=== PATIENT | female | born 1995 | race Two or more races ===

== ENCOUNTER 2017-11-05 18:33 | Emergency (ER) | payer MEDICAID ==
[~2017-11-05] VITALS: Ht 160 cm; Wt 49.0 kg
--- NOTE | 2017-11-05 18:40 | Emergency Room Report ---
History of Present Illness General Chief Complaint: Complications Source: Patient Present Illness HPI 22 yo female patient presents to ER complaining of vaginal bleed since today. Patient reports she is 4.5 weeks . Reports first . Reports at OBGYN for first appointment this morning, confirmed with blood test, PAP performed at that time, reports no abnormal results. Reports seen at [facility]. in [place]. Presents with paperwork stating she is , paperwork does show lab results. Reports at home test negative yesterday. Reports went to bathroom and wiped and saw blood on toilet paper. Denies pain with urination, denies vaginal discharge. Denies use of pads. Denies passage of products of conception or clots. Denies nausea, vomiting. Reports abdominal discomfort earlier; denies abdominal pain at this time. Denies syncope. Reports does not know Rh status. Denies fever, chest pain, SOB, calf pain. Allergies: Coded Allergies: No Known Allergies (Unverified , 11/05/17) Patient History Past Medical History: see triage record Now: Yes - 4 1/2 weeks Reviewed Nursing Documentation: PMH: Agreed; PSxH: Agreed Nursing Documentation-PMH Past Medical History: No Stated History Review of Systems All Other Systems: negative except mentioned in HPI Physical Exam Vital Signs Date Time Temp Pulse Resp B/P (MAP) Pulse Ox O2 Delivery O2 Flow Rate FiO2 11/05/17 18:27 97.7 81 16 101/68 97 Room Air 97.7 Sp02 EP Interpretation: reviewed, normal General Appearance: well appearing, no apparent distress, alert, GCS 15, non- toxic Head: normocephalic, atraumatic Eyes: bilateral eye normal inspection, bilateral eye PERRL ENT: hearing grossly normal, normal pharynx, no angioedema, normal voice, uvula midline, moist mucus membranes Neck: full range of motion Respiratory: lungs clear, normal breath sounds, no rhonchi, no respiratory distress, no accessory muscle use, no wheezing, speaking full sentences Cardiovascular #1: regular rate, rhythm, no edema Gastrointestinal: non tender, soft, no mass, non-distended, no guarding, no rebound Genitourinary: no CVA tenderness, deferred Musculoskeletal: back normal, digits/nails normal, gait/station normal, normal range of motion, non-tender, no calf tenderness, Kristopher's Sign negative Neurologic: alert, oriented x3, responsive, motor strength/tone normal, sensory intact Skin: no rash Lymphatic: no adenopathy Medical Decision Making PA Attestation Dr. Delaney is my supervising Physician whom patient management has been discussed with. Diagnostic Impression: Primary Impression: Follicular cyst of ovary Additional Impression: Negative test ER Course Pt presents to ED c/o vaginal spotting. Reports 4.5 weeks . DDX considered but are not limited to threatened , incomplete , complete , ectopic, UTI, septic . VITAL SIGNS are WNL, patient is afebrile. Pelvic exam deferred. Ordered CBC, CMP, Type and Screen, UA, UCG, bHCG, IV NS and pelvic US. Pain control. ER COURSE: Patient resting comfortably, in no acute distress, nontoxic appearing, afebrile. Low suspicion for septic . PE benign, no abdominal pain, no CVA tenderness. Patient reports pain symptoms resolved since onset. CBC and CMP unremarkable, no elevation in WBC or LFTs UA results negative nitrites, negative leukocyte esterase, will not treat for UTI. Urine negative BetaHCG <1. Low suspicion for ectopic . Rh antibody negative Blood type: O positive Informed patient of blood type and Rh status. Discuss results with patient. Informed patient may have lost or are beginning to lose . Need to followup with clinic to confirm initial lab results of . Prior test may have been a false positive. Need repeat testing. US results shows no IUP. Early in , may not be visible at this time. Follicular cysts and free fluid per US generation technician, followup with OBGYN to monitor. Take Tylenol for pain. STATRAD negative ovarian torsion, negative IUP. Patient provided with copy of STATRAD report. Instructed patient to followup with OBGYN for further testing and repeat imaging at that time. Patient reports clinic where diagnosed is open tomorrow and she will report there to discuss results and further followup treatment at that time. Informed patient to take Tylenol only for pain symptoms, do not take Motrin/ Ibuprofen. ER precautions provided to patient. Patient OK for discharge to home. Consult with Dr. Delaney regarding results. Agrees with above treatment and plan. DISCHARGE: -Rx provided for Tylenol for pain At this time pt. is stable for d/c to home. At this time patient is resting comfortably, in no acute distress, nontoxic appearing, talking without difficulty. Will provide printed patient care instructions, and any necessary prescriptions. Patient instructed to follow with OBGYN for further treatment and referral as needed. Care plan and follow up instructions have been discussed with the patient prior to discharge. Patient reports understanding and agreement to treatment plan. Patient questions asked and answered. ER precautions given, patient instructed to return to ER immediately for any new or worsening of symptoms including but not limited to fever, intractable vomiting, vaginal bleeding, abdominal pain, blood in urine or stool. Labs Test 11/05/17 18:55 White Blood Count 7.0 K/UL (4.8-10.8) Red Blood Count 3.83 M/UL (4.20-5.40) Hemoglobin 11.6 G/DL (12.0-16.0) Hematocrit 33.6 % (37.0-47.0) Mean Corpuscular Volume 88 FL (80-99) Mean Corpuscular Hemoglobin 30.3 PG (27.0-31.0) Mean Corpuscular Hemoglobin Concent 34.5 G/DL (32.0-36.0) Red Cell Distribution Width 11.8 % (11.6-14.8) Platelet Count 297 K/UL (150-450) Mean Platelet Volume 7.0 FL (6.5-10.1) Neutrophils (%) (Auto) 54.3 % (45.0-75.0) Lymphocytes (%) (Auto) 27.8 % (20.0-45.0) Monocytes (%) (Auto) 11.1 % (1.0-10.0) Eosinophils (%) (Auto) 5.5 % (0.0-3.0) Basophils (%) (Auto) 1.2 % (0.0-2.0) Urine Color Pale yellow Urine Appearance Clear Urine pH 8 (4.5-8.0) Urine Specific [place] 1.010 (1.005-1.035) Urine Protein Negative (NEGATIVE) Urine Glucose (UA) Negative (NEGATIVE) Urine Ketones Negative (NEGATIVE) Urine Occult Blood 4+ (NEGATIVE) Urine Nitrite Negative (NEGATIVE) Urine Bilirubin Negative (NEGATIVE) Urine Urobilinogen Normal MG/DL (0.0-1.0) Urine Leukocyte Esterase Negative (NEGATIVE) Urine RBC 2-4 /HPF (0 - 2) Urine WBC 0-2 /HPF (0 - 2) Urine Squamous Epithelial Cells Few /LPF (NONE/OCC) Urine Bacteria Few /HPF (NONE) Urine HCG, Qualitative Negative (NEGATIVE) Sodium Level 140 MMOL/L (136-145) Potassium Level 3.5 MMOL/L (3.5-5.1) Chloride Level 106 MMOL/L (98-107) Carbon Dioxide Level 27 MMOL/L (21-32) Anion Gap 7 mmol/L (5-15) Blood Urea Nitrogen 8 mg/dL (7-18) Creatinine 0.6 MG/DL (0.55-1.30) Estimat Glomerular Filtration Rate > 60 mL/min (>60) Glucose Level 80 MG/DL (74-106) Calcium Level 8.6 MG/DL (8.5-10.1) Total Bilirubin 0.2 MG/DL (0.2-1.0) Aspartate Amino Transf (AST/SGOT) 13 U/L (15-37) Alanine Aminotransferase (ALT/SGPT) 9 U/L (12-78) Alkaline Phosphatase 91 U/L (46-116) Total Protein 7.5 G/DL (6.4-8.2) Albumin 3.6 G/DL (3.4-5.0) Globulin 3.9 g/dL Albumin/Globulin Ratio 0.9 (1.0-2.7) Lipase 145 U/L (73-393) Human Chorionic Gonadotropin, Quant < 1 mIU/mL (1-6) CT/MRI/US Diagnostic Results CT/MRI/US Diagnostic Results : Imaging Test Ordered: Pelvic Impression STATRAD: No IUP identified. Endometrium 14 mm. No abnormal adnexal mass. Small free fluid. No ovarian torsion. Cellophane Tester reading: Follicular cysts No torsion No IUP Small free fluid Last Vital Signs Date Time Temp Pulse Resp B/P (MAP) Pulse Ox O2 Delivery O2 Flow Rate FiO2 11/05/17 18:27 97.7 81 16 101/68 97 Room Air 97.7 Disposition: HOME, SELF-CARE Condition: Stable Scripts Acetaminophen* (TYLENOL EXTRA STRENGTH*) 500 Mg Tablet 500 MG ORAL Q8H PRN for Prn Headache/Temp > 101, #30 TAB 0 Refills Prov: Froylan Canas 3/23/18 Patient Instructions: Rh Incompatibility, Vaginal Bleeding During , First Trimester, [id number] Additional Instructions: Followup with primary care provider in 3 -5 days. Followup with OBGYN for repeat testing in 1 week and imaging as required. OBGYN will monitor follicular cysts and free fluid. Take medications as directed. Tylenol for pain. Patient questions asked and answered. ER precautions given, patient instructed to return to ER immediately for any new or worsening of symptoms. O Positive blood type Rh antibody negative Froylan Canas Nov 05, 2017 18:40
[2017-11-05] MEDS ORDERED: Acetaminophen 500mg (ES) tab ORAL ONE (19:00)
[2017-11-05 19:17] LABS: BASOPHILS % (AUTO) 1.2 % (0.0-2.0); EOSINOPHILS % (AUTO) 5.5 % (0.0-3.0); HEMATOCRIT 33.6 % (37.0-47.0); HEMOGLOBIN 11.6 G/DL (12.0-16.0); LYMPHOCYTES % (AUTO) 27.8 % (20.0-45.0); MEAN CORPUSCULAR VOLUME 88 FL (80-99); MONOCYTES % (AUTO) 11.1 % (1.0-10.0); NEUTROPHILS % (AUTO) 54.3 % (45.0-75.0); PLATELET COUNT 297 K/UL (150-450); RED BLOOD COUNT 3.83 M/UL (4.20-5.40); RED CELL DISTRIBUTION WIDTH 11.8 % (11.6-14.8)
[2017-11-05 19:25] LABS: APPEARANCE,URINE CLEAR; BILIRUBIN, URINE NEGATIVE (NEGATIVE); COLOR,URINE PALE YELLOW; GLUCOSE, URINE (UA) NEGATIVE (NEGATIVE); KETONES,URINE NEGATIVE (NEGATIVE); LEUKOCYTE ESTERASE ,URINE NEGATIVE (NEGATIVE); NITRITE,URINE NEGATIVE (NEGATIVE); PH,URINE 8 (4.5-8.0); PROTEIN,URINE NEGATIVE (NEGATIVE); UROBILINOGEN,URINE NORMAL MG/DL (0.0-1.0)
[2017-11-05 19:33] LABS: ALANINE AMINOTRANSFERASE 9 U/L (12-78); ALBUMIN 3.6 G/DL (3.4-5.0); ALBUMIN/GLOBULIN RATIO 0.9 (1.0-2.7); ALKALINE PHOSPHATASE 91 U/L (46-116); ANION GAP 7 mmol/L (5-15); ASPARTATE AMINO TRANSFERASE 13 U/L (15-37); BILIRUBIN,TOTAL 0.2 MG/DL (0.2-1.0); BLOOD UREA NITROGEN 8 mg/dL (7-18); CALCIUM 8.6 MG/DL (8.5-10.1); CARBON DIOXIDE 27 MMOL/L (21-32); CHLORIDE 106 MMOL/L (98-107); CREATININE 0.6 MG/DL (0.55-1.30); POTASSIUM 3.5 MMOL/L (3.5-5.1); SODIUM 140 MMOL/L (136-145)
[2017-11-05] MEDS ORDERED: TYLENOL EXTRA500 MG ORAL (20:50)
[2017-11-05 21:12] VITALS: BP 103/72
[2017-11-05 21:15] VITALS: BP 103/72
--- NOTE | 2017-11-06 09:28 | Diagnostic Imaging Report ---
Indication: Pelvic pain. Reportedly positive test. Beta-hCG less than 1. Technique: Transabdominal and endovaginal pelvic ultrasound. Comparison: None Findings: Uterus measures 7.2 x 4.3 cm. Endometrial echo complex measures 1.4 cm. No intrauterine is identified. There is trace fluid in the pelvis. Right ovary measures 3.8 x 2.2 cm with follicular changes. Left ovary measures 2.9 x 1.2 cm with follicular changes. Color and Doppler flow are demonstrated to the bilateral ovaries. Impression: No intrauterine identified. Differential considerations include a spontaneous and early intrauterine below threshold level for sonographic visualization. In the absence of a documented intrauterine , occult ectopic cannot be excluded. Clinical/laboratory followup as indicated. Repeat imaging can be performed as clinically appropriate.
== END 2017-11-05 21:15 | disposition home or self-care (01) ==
LOC: EDBD 18:33 → EMR 18:53
DX: N83.00 Follicular cyst of ovary, unspecified side (principal)
CPT/HCPCS: 36415; 76830; 76856; 80053; 81003; 81025; 83690; 84702; 85025; 86850; 86900; 86901; 96374; 99284